=== PATIENT | female | born 1985 | race Caucasian/White ===

== ENCOUNTER 2022-05-23 09:16 | Emergency (ER) | payer OTHER ==
[2022-05-23 09:39] VITALS: RESP 18; TEMP 97.9; BMI 25.6
[2022-05-23] MEDS ORDERED: METOCLOPRAMIDE HCL INJECTION 10 MG/2 ML VIAL IVPB ONE (10:47)
[2022-05-23] MEDS ORDERED: ACETAMINOPHEN 1000 MG/100 ML BAG IVPB ONE (10:47)
[2022-05-23] MEDS ORDERED: SODIUM CHLORIDE 0.9% 1000 ML INFUS.BAG IV ONE (10:48)
[2022-05-23] MEDS ORDERED: ACETAMINOPHEN INJECTION 100 ML IVPB ONE (11:06)
[2022-05-23] MEDS ORDERED: METOCLOPRAMIDE HCL INJECTION 10 MG/2 ML VIAL ONE (11:06)
[2022-05-23 11:22] LABS: HEMATOCRIT 35.4 % (32.4-45.2); MCH 27.2 pg (25.7-33.7); MEAN CELL VOLUME 79.9 fl (80-96); MEAN PLT VOLUME 8.2 fl (7.5-11.1); PLATELET COUNT 375 10^3/uL (134-434); RBC 4.43 M/mm3 (3.60-5.2); RDW 20.5 % (11.6-15.6); WHITE BLOOD COUNT 8.4 K/mm3 (4.0-10.0)
[2022-05-23 11:41] LABS: CALCIUM 9.3 mg/dL (8.5-10.1)
[2022-05-23 11:45] LABS: CREATININE 0.8 mg/dL (0.55-1.3)
[2022-05-23 12:44] LABS: COCAINE, UR NEGATIVE (NEGATIVE); METHADONE, UR NEGATIVE (NEGATIVE); OPIATES, URI NEGATIVE (NEGATIVE); PHENCYCLIDINE,URINE NEGATIVE (NEGATIVE); URINE AMPHETAMINES NEGATIVE (NEGATIVE); URINE BARBITURATES NEGATIVE (NEGATIVE); URINE BENZODIAZEPINES NEGATIVE (NEGATIVE)
[2022-05-23] MEDS ORDERED: BUPRENORPHINE/NALOXONE 2 MG/0.5 MG FILM PACKET SL ONE (13:17)
[2022-05-23] MEDS ORDERED: BUPRENORPHINE/NALOXONE 2 MG/0.5 MG FILM PACKET ONE ×2 (13:25→13:39)
[2022-05-23 15:11] VITALS: BP 135/70; PULSE 70
== END 2022-05-23 16:00 | disposition home or self-care (01) ==
LOC: JER 09:16
PROC: 3E033GC Introduction of Other Therapeutic Substance into Peripheral Vein, Percutaneous Approach (ICD-10-PCS; principal; 2022-05-23)
DX: F11.23 Opioid dependence with withdrawal (principal)
CPT/HCPCS: 0241U-QW; 36415; 80048; 80307; 83690; 84703; 85027; 99284-25

== ENCOUNTER 2024-04-01 04:24 | Day surgery (SDC) | payer OTHER ==
[2024-03-26 15:54] VITALS: BMI 29.2
[2024-04-01] MEDS ORDERED: BUPIVACAINE HCL/PF 0.5% (5MG/ML) 10 ML VIAL ONE ×2 (09:01→12:20)
[2024-04-01] MEDS ORDERED: LIDOCAINE HCL 1%, 10 MG/ML (20ML VIAL) ONE ×2 (09:01→12:20)
[2024-04-01] MEDS ORDERED: PROMETHAZINE HCL 25 MG/1 ML VIAL IVPB PRN (12:18)
[2024-04-01] MEDS ORDERED: oxyCODONE HCL 5 MG TABLET PO PRN (12:18)
[2024-04-01] MEDS ORDERED: ONDANSETRON 4 MG/2 ML VIAL IVPUSH PRN (12:18)
[2024-04-01] MEDS ORDERED: LACTATED RINGERS SOLUTION 1,000 ML IV SCH (12:30)
[2024-04-01] MEDS ORDERED: MIDAZOLAM HCL 2 MG/2 ML SINGLE DOSE VIAL ONE (12:47)
[2024-04-01] MEDS ORDERED: PROPOFOL 20 ML ONE (12:47)
[2024-04-01] MEDS ORDERED: FENTANYL CITRATE/PF 50 MCG/ML VIAL ONE ×2 (12:47→14:05)
[2024-04-01] MEDS ORDERED: ACETAMINOPHEN INJECTION 100 ML IVPB ONE (13:05)
[2024-04-01] MEDS: ceFAZolin SODIUM 1 GM VIAL IVPB ONE (13:08)
[2024-04-01] MEDS: LIDOCAINE 1% P/F 10 MG/ML VIAL INF ONE (13:11)
[2024-04-01] MEDS: BUPIVACAINE HCL/PF 0.25% (2.5MG/ML) 10 ML VIAL IJ ONE (13:13)
[2024-04-01 14:53] VITALS: BP 120/78; PULSE 86; RESP 16; TEMP 97.7
== END 2024-04-01 17:30 | disposition home or self-care (01) ==
LOC: JASU-SURG 04:24
PROVIDERS: ATTEND Surgery
PROC: 0JBC0ZZ Excision of Pelvic Region Subcutaneous Tissue and Fascia, Open Approach (ICD-10-PCS; principal; 2024-04-01 13:00)
DX: L73.2 Hidradenitis suppurativa (principal)
CPT/HCPCS: 81025; 88305-TC; 94760; J0131